=== PATIENT | male | born 1985 ===

== ENCOUNTER 2017-09-12 13:45 | Emergency (ER) | payer SELFPAY ==
[~2017-09-12] VITALS: Ht 177.8 cm; Wt 72.7 kg
[2017-09-12 14:27] VITALS: TEMP 98.5
[2017-09-12] MEDS ORDERED: BENADRYL50 MG PO (14:52)
[2017-09-12] MEDS ORDERED: TYLENOL 325MG325 MG PO (14:53)
[2017-09-12] MEDS ORDERED: ADVIL200 MG PO (14:54)
[2017-09-12 15:02] LABS: BASO # 0.1 (0.0-0.2); BASO % 0.4 % (0.0-2.0); EOS % 0.2 % (0-4.0); GRAN # 10.9 (1.4-6.5); GRAN % 82.3 % (42.2-75.2); HEMATOCRIT 50.5 % (42.0-52.0); LYMPH # 1.4 (1.2-3.4); LYMPH % 10.6 % (20.0-51.0); MEAN CELL VOLUME 82 fl (80.0-100.0); MEAN CORPUSCULAR HEMOGLOBIN 28 pg (27.0-31.0); MEAN CORPUSCULAR HGB CONC 34 g/dl (33.0-37.0); MEAN PLATELET VOLUME 10.9 fl (7.4-10.4); MONO # 0.8 (0.1-0.6); MONO % 6.1 % (1.7-9.3); PLATELET COUNT 192 K/mm3 (130-400); RED BLOOD COUNT 6.15 M/mm3 (4.20-5.60); REDCELL DISTRIBUTION WIDTH-CV 15.7 % (11.5-14.5)
[2017-09-12 15:17] LABS: INR 1.1 (0.8-3.0); PROTHROMBIN TIME 12.2 SECONDS (9.7-12.8)
[2017-09-12 15:20] LABS: PARTIAL THROMBOPLASTIN TIME 32.1 SECONDS (26.0-37.0)
[2017-09-12 15:21] LABS: AMMONIA < 9 umol/L (11-35)
[2017-09-12 15:22] LABS: ACETAMINOPHEN 19 ug/mL (10-30); ALANINE AMINOTRANSFERASE 19 U/L (21-72); ALBUMIN 4.4 gm/dL (3.5-5.0); ALCOHOL(ethanol),MEDICAL < 10 mg/dL; ALKALINE PHOSPHATASE 81 U/L (50-136); ANION GAP 11 mmol/L (7-16); AST,SGOT 34 U/L (15-37); BILIRUBIN,TOTAL 1.4 mg/dL (0.0-1.0); BLOOD UREA NITROGEN 15 mg/dL (9-20); CALCIUM 9.2 mg/dL (8.4-10.2); CARBON DIOXIDE 25 mmol/L (22-30); CHLORIDE 105 mmol/L (98-107); CREATININE, serum 0.99 mg/dL (0.66-1.25); GLUCOSE 89 mg/dL (74-106); LIPASE 51 U/L (23-300); PHOSPHOROUS 2.5 mg/dL (2.5-4.5); POTASSIUM 4.1 mmol/L (3.4-5.0); SALICYLATE 9.4 mg/dL; SODIUM 140 mmol/L (137-145); TOTAL PROTEIN 7.4 gm/dL (6.4-8.2)
[2017-09-12 15:43] LABS: TRICYCLIC ANTIDEPRESS URINE NEGATIVE
[2017-09-12 16:24] LABS: COLLECTION METHOD CLEAN CATCH
[2017-09-12 16:33] LABS: MUCOUS Present /lpf; PH 5 (5-8); SQUAMOUS EPITHELIAL 0-2 /hpf; URINE APPEARANCE Hazy; URINE BACTERIA None Seen /hpf; URINE BILIRUBIN Positive (NEGATIVE); URINE BLOOD Negative (NEGATIVE); URINE COLOR Yellow; URINE GLUCOSE Negative (NEGATIVE); URINE KETONE 1+ (NEGATIVE); URINE LEUKOCYTE ESTERASE Negative (NEGATIVE); URINE NITRATE Negative (NEGATIVE); URINE PROTEIN(semi-quant) Negative (NEGATIVE)
[2017-09-12 18:46] VITALS: BP 122/80; PULSE 72
== END 2017-09-12 18:47 | disposition home or self-care (01) ==
LOC: COL.ER 13:45
PROVIDERS: Emergency Medicine
DX: T39.1X1A Poisoning by 4-Aminophenol derivatives, accidental (unintentional), initial encounter (principal); T39.311A Poisoning by propionic acid derivatives, accidental (unintentional), initial encounter; T48.3X1A Poisoning by antitussives, accidental (unintentional), initial encounter; M25.562 Pain in left knee; F20.9 Schizophrenia, unspecified; F17.210 Nicotine dependence, cigarettes, uncomplicated; Z98.890 Other specified postprocedural states
CPT/HCPCS: J2405; J3010; J7030; Q9967

== ENCOUNTER 2017-12-22 15:49 | Emergency (ER) | payer SELFPAY ==
[~2017-12-22] VITALS: Ht 180.3 cm; Wt 60.1 kg
[~2017-12-22 15:49] MED LIST: ADVIL200 MG PO; BENADRYL50 MG PO; TYLENOL 325MG325 MG PO
[2017-12-22 15:51] VITALS: TEMP 98
[2017-12-22] MEDS ORDERED: LITHIUM CA150 MG/CAP PO (16:24)
[2017-12-22] MEDS ORDERED: XANAX .25M0.25 MG/TA PO (16:24)
[2017-12-22 16:28] LABS: BASO % 0.6 % (0.0-2.0); EOS # 0.1 (0.0-0.7); EOS % 1.7 % (0-4.0); GRAN % 57.4 % (42.2-75.2); HEMATOCRIT 48.7 % (42.0-52.0); HEMOGLOBIN 15.9 g/dl (13.5-18.0); LYMPH # 1.8 (1.2-3.4); LYMPH % 26.1 % (20.0-51.0); MEAN CELL VOLUME 83 fl (80.0-100.0); MEAN CORPUSCULAR HEMOGLOBIN 27 pg (27.0-31.0); MEAN CORPUSCULAR HGB CONC 33 g/dl (33.0-37.0); MEAN PLATELET VOLUME 10.4 fl (7.4-10.4); MONO % 14.1 % (1.7-9.3); PLATELET COUNT 212 K/mm3 (130-400); RED BLOOD COUNT 5.85 M/mm3 (4.20-5.60); REDCELL DISTRIBUTION WIDTH-CV 14.5 % (11.5-14.5)
[2017-12-22 16:29] LABS: INR 1.2 (0.8-3.0); PROTHROMBIN TIME 13.6 SECONDS (9.7-12.8)
[2017-12-22 16:34] LABS: ALBUMIN 3.9 gm/dL (3.5-5.0); CALCIUM 9.3 mg/dL (8.4-10.2); CREATININE, serum 1.04 mg/dL (0.66-1.25); POTASSIUM 4.1 mmol/L (3.4-5.0); TOTAL PROTEIN 7.6 gm/dL (6.4-8.2)
[2017-12-22] MEDS ORDERED: MIRALAX 255 GM255 GM PO (17:02)
[2017-12-22 17:24] VITALS: BP 111/85; PULSE 82
== END 2017-12-22 17:17 | disposition home or self-care (01) ==
LOC: COL.ER 15:49
PROVIDERS: Emergency Medicine
DX: K64.8 Other hemorrhoids (principal); F31.9 Bipolar disorder, unspecified

== ENCOUNTER 2018-01-01 22:00 | Emergency (ER) | payer SELFPAY ==
[~2018-01-01] VITALS: Ht 180.3 cm; Wt 65.9 kg
[~2018-01-01 22:00] MED LIST changes: +LITHIUM CA150 MG/CAP PO; +MIRALAX 255 GM255 GM PO; +XANAX .25M0.25 MG/TA PO
[2018-01-01 22:07] VITALS: TEMP 97.1
[2018-01-01 22:43] LABS: BASO % 0.3 % (0.0-2.0); EOS # 0.2 (0.0-0.7); EOS % 1.8 % (0-4.0); GRAN # 6.4 (1.4-6.5); GRAN % 58.4 % (42.2-75.2); HEMATOCRIT 43.7 % (42.0-52.0); HEMOGLOBIN 14.3 g/dl (13.5-18.0); LYMPH # 3.6 (1.2-3.4); LYMPH % 32.2 % (20.0-51.0); MEAN CELL VOLUME 82 fl (80.0-100.0); MEAN CORPUSCULAR HEMOGLOBIN 27 pg (27.0-31.0); MEAN CORPUSCULAR HGB CONC 33 g/dl (33.0-37.0); MEAN PLATELET VOLUME 10.2 fl (7.4-10.4); MONO # 0.8 (0.1-0.6); PLATELET COUNT 221 K/mm3 (130-400); RED BLOOD COUNT 5.31 M/mm3 (4.20-5.60); REDCELL DISTRIBUTION WIDTH-CV 14.4 % (11.5-14.5)
[2018-01-01 22:55] LABS: ALBUMIN 3.7 gm/dL (3.5-5.0); BILIRUBIN,TOTAL 0.3 mg/dL (0.0-1.0); C-REACTIVE PROTEIN 0.9 mg/dL (0.0-0.9); CALCIUM 8.7 mg/dL (8.4-10.2); CREATININE, serum 0.94 mg/dL (0.66-1.25); POTASSIUM 3.8 mmol/L (3.4-5.0); TOTAL PROTEIN 6.7 gm/dL (6.4-8.2)
[2018-01-01 23:47] LABS: COLLECTION METHOD CLEAN CATCH
[2018-01-01 23:52] LABS: MUCOUS Present /lpf; PH 6 (5-8); SQUAMOUS EPITHELIAL None Seen /hpf; URINE APPEARANCE Clear; URINE BACTERIA None Seen /hpf; URINE BILIRUBIN Negative (NEGATIVE); URINE BLOOD Negative (NEGATIVE); URINE COLOR Yellow; URINE GLUCOSE Negative (NEGATIVE); URINE KETONE Negative (NEGATIVE); URINE LEUKOCYTE ESTERASE Negative (NEGATIVE); URINE NITRATE Negative (NEGATIVE); URINE PROTEIN(semi-quant) Negative (NEGATIVE); URINE RBC None Seen /hpf
[2018-01-02] MEDS ORDERED: ZOFRAN ODT4 MG PO (00:18)
[2018-01-02 00:45] VITALS: BP 115/79; PULSE 78
== END 2018-01-02 00:45 | disposition home or self-care (01) ==
LOC: COL.ER 22:00
PROVIDERS: Family Medicine
DX: R10.31 Right lower quadrant pain (principal); R11.0 Nausea; F31.9 Bipolar disorder, unspecified; F17.210 Nicotine dependence, cigarettes, uncomplicated
CPT/HCPCS: J2060; J2405; J3010; J7030

== ENCOUNTER 2018-01-10 11:48 | Emergency (ER) | payer SELFPAY ==
[~2018-01-10] VITALS: Ht 180.3 cm; Wt 65.9 kg
[~2018-01-10 11:48] MED LIST changes: +ZOFRAN ODT4 MG PO
[2018-01-10 11:53] VITALS: BP 114/69; PULSE 85; TEMP 98.7
[2018-01-10 12:31] LABS: COLLECTION METHOD CLEAN CATCH
[2018-01-10 12:39] LABS: BASO % 0.4 % (0.0-2.0); EOS # 0.2 (0.0-0.7); EOS % 1.9 % (0-4.0); GRAN # 4.8 (1.4-6.5); GRAN % 60.5 % (42.2-75.2); HEMATOCRIT 46.8 % (42.0-52.0); HEMOGLOBIN 15.4 g/dl (13.5-18.0); LYMPH # 2.2 (1.2-3.4); LYMPH % 28.5 % (20.0-51.0); MEAN CELL VOLUME 82 fl (80.0-100.0); MEAN CORPUSCULAR HEMOGLOBIN 27 pg (27.0-31.0); MEAN CORPUSCULAR HGB CONC 33 g/dl (33.0-37.0); MEAN PLATELET VOLUME 10.6 fl (7.4-10.4); MONO # 0.7 (0.1-0.6); MONO % 8.3 % (1.7-9.3); PLATELET COUNT 211 K/mm3 (130-400); RED BLOOD COUNT 5.71 M/mm3 (4.20-5.60); REDCELL DISTRIBUTION WIDTH-CV 14.6 % (11.5-14.5)
[2018-01-10 12:42] LABS: MUCOUS Present /lpf; PH 5 (5-8); SQUAMOUS EPITHELIAL None Seen /hpf; URINE APPEARANCE Clear; URINE BACTERIA None Seen /hpf; URINE BILIRUBIN Negative (NEGATIVE); URINE BLOOD Negative (NEGATIVE); URINE COLOR Yellow; URINE GLUCOSE Negative (NEGATIVE); URINE KETONE Negative (NEGATIVE); URINE LEUKOCYTE ESTERASE Negative (NEGATIVE); URINE NITRATE Negative (NEGATIVE); URINE PROTEIN(semi-quant) Negative (NEGATIVE); URINE RBC 0-2 /hpf; URINE UROBILINOGEN Negative (NEGATIVE)
[2018-01-10 12:46] LABS: ALBUMIN 3.7 gm/dL (3.5-5.0); BILIRUBIN,TOTAL 0.6 mg/dL (0.0-1.0); C-REACTIVE PROTEIN 0.6 mg/dL (0.0-0.9); CALCIUM 8.9 mg/dL (8.4-10.2); CREATININE, serum 1.03 mg/dL (0.66-1.25); POTASSIUM 3.9 mmol/L (3.4-5.0); TOTAL PROTEIN 6.8 gm/dL (6.4-8.2)
== END 2018-01-10 12:58 | disposition home or self-care (01) ==
LOC: COL.ER 11:48
PROVIDERS: Physician Assistant
DX: R10.31 Right lower quadrant pain (principal)

== ENCOUNTER 2018-01-21 18:47 | Emergency (ER) | payer MEDICAID ==
[~2018-01-21] VITALS: Ht 180.3 cm; Wt 66.4 kg
[2018-01-21 19:02] VITALS: TEMP 98.1
[2018-01-21] MEDS ORDERED: NORCO 325 MG-51 TAB PO (21:11)
[2018-01-21 21:43] VITALS: BP 100/66; PULSE 76
== END 2018-01-21 21:43 | disposition home or self-care (01) ==
LOC: COL.ER 18:47
DX: S62.336A Displaced fracture of neck of fifth metacarpal bone, right hand, initial encounter for closed fracture (principal); F41.9 Anxiety disorder, unspecified; F31.9 Bipolar disorder, unspecified; F17.210 Nicotine dependence, cigarettes, uncomplicated; F12.10 Cannabis abuse, uncomplicated; W22.01XA Walked into wall, initial encounter; Y92.009 Unspecified place in unspecified non-institutional (private) residence as the place of occurrence of the external cause

== ENCOUNTER 2018-02-18 11:40 | Emergency (ER) | payer MEDICAID ==
[~2018-02-18] VITALS: Ht 180.3 cm; Wt 65.9 kg
[~2018-02-18 11:40] MED LIST changes: +NORCO 325 MG-51 TAB PO
[2018-02-18 11:43] VITALS: BP 119/80; PULSE 83; TEMP 98.6
[2018-02-18] MEDS ORDERED: ZOLOFT 25MG25 MG PO (13:01)
[2018-02-18] MEDS ORDERED: LEXAPRO 10MG10 MG PO (13:02)
== END 2018-02-18 14:37 | disposition home or self-care (01) ==
LOC: COL.ER 11:40
DX: S69.91XA Unspecified injury of right wrist, hand and finger(s), initial encounter (principal); S60.221A Contusion of right hand, initial encounter; F31.9 Bipolar disorder, unspecified; F20.0 Paranoid schizophrenia; F17.210 Nicotine dependence, cigarettes, uncomplicated; F12.10 Cannabis abuse, uncomplicated; W23.0XXA Caught, crushed, jammed, or pinched between moving objects, initial encounter

== ENCOUNTER 2018-12-27 22:55 | Emergency (ER) | payer MEDICAID ==
[~2018-12-27] VITALS: Ht 180.3 cm; Wt 62.7 kg
[~2018-12-27 22:55] MED LIST changes: +LEXAPRO 10MG10 MG PO; +LITHIUM 30300 MG/CAP PO; +PRIL40 PO; +RISPERDAL 0.5M0.5 MG PO; +ZOLOFT 25MG25 MG PO
[2018-12-27 23:15] VITALS: BP 126/80; TEMP 98.2
[2018-12-27] MEDS ORDERED: FLEXERIL 1010 MG/TAB PO (23:30)
[2018-12-28 01:18] VITALS: PULSE 76
== END 2018-12-28 01:20 | disposition home or self-care (01) ==
LOC: COL.ER 22:55
DX: S40.011A Contusion of right shoulder, initial encounter (principal); W22.8XXA Striking against or struck by other objects, initial encounter; Y92.009 Unspecified place in unspecified non-institutional (private) residence as the place of occurrence of the external cause